=== PATIENT | female | born 1960 | race Caucasian/White ===

== ENCOUNTER 2018-06-09 08:38 | Emergency (ER) | payer OTHER ==
[2018-06-09] MEDS: IBUPROFEN 600 MG TAB PO (09:20)
== END 2018-06-09 11:05 | disposition home or self-care (01) ==
LOC: FTE 08:38
DX: S49.91XA Unspecified injury of right shoulder and upper arm, initial encounter (principal); I10 Essential (primary) hypertension; W01.0XXA Fall on same level from slipping, tripping and stumbling without subsequent striking against object, initial encounter; Y92.9 Unspecified place or not applicable
CPT/HCPCS: 73030; 73030-RT; 99283-25